=== PATIENT | female | born 2000 | race Caucasian/White ===

== ENCOUNTER 2020-10-05 07:29 | Emergency (ER) | payer OTHER ==
[~2020-10-05] VITALS: Ht 162.6 cm; Wt 54.4 kg
[2020-10-05] MEDS ORDERED: IRON18 M1 PO (07:44)
[2020-10-05 07:53] LABS: CALCIUM 9.5 mg/dL (8.5-10.1); POTASSIUM 3.8 mmol/L (3.5-5.1)
[2020-10-05 07:57] LABS: HEMATOCRIT 41.3 % (37.0-47.0); HEMOGLOBIN 14.3 gm/dL (12.0-15.0); MCH 30.2 pg (26.0-34.0); MCHC 34.7 g/dL (28.0-37.0); MCV 87.2 fL (80.0-100.0); MPV 6.8 fl. (7.2-11.1); RBC 4.74 mil/uL (4.20-5.00); RDW-CV 12.3 % (10.5-14.5); WBC 9.4 thou/uL (4.0-11.0)
[2020-10-05 07:58] LABS: ALBUMIN 4.4 g/dL (3.4-5.0); TOTAL BILIRUBIN 0.8 mg/dL (<0.1-1.0); TOTAL PROTEIN 7.5 g/dL (6.4-8.2)
[2020-10-05 08:05] LABS: URINE BLOOD 1+ (Negative); URINE CLARITY CLEAR; URINE COLOR YELLOW; URINE GLUCOSE-RANDOM NEGATIVE (Negative); URINE KETONES TRACE (Negative); URINE LEUKOCYTES NEGATIVE (Negative); URINE NITRITE NEGATIVE (Negative); URINE PROTEIN TRACE (Negative); URINE SPECIFIC GRAVITY 1.025 (1.005-1.030); URINE UROBILINOGEN 0.2 E.U./dl (0.2-1.0)
[2020-10-05 08:12] LABS: ICTOTEST (BILI CONFIRMATORY) Negative (Negative); URINE BILIRUBIN 1+ (Negative)
[2020-10-05 08:16] LABS: SQUAMOUS 4-10 Moderate /LPF (0-3)
[2020-10-05 08:17] LABS: BACTERIA 1-9 Few /HPF (None Seen); CRYSTALS None Seen /LPF (None Seen); HYALINE CASTS 0-3 Few /LPF (None Seen); MUCUS >6 Heavy strn/LPF (None Seen); URINE RBC 3-10 Few /HPF (0-2); URINE WBC 0-5 Rare /HPF (0-5)
[2020-10-05 08:44] VITALS: BP 100/57
--- NOTE | 2020-10-05 14:22 | EKG ---
[place] [address] ELECTROCARDIOGRAM REPORT Name: AHMET TALLEY Room: [facility]#: [id number] Admission: 10/05/20 Attend Phys: Discharge: 10/05/20 Date of : [birth year] Date of Service: 10/05/20 0741 Report #: [id number] THIS REPORT FOR: //name// [facility] ED Test Date: 2020-10-05 Test Time: 07:41:41 Pat Name: AHMET TALLEY Department: Room: Gender: Mechanical Design Engineer Facilities: : 2000 Requested By: Presley Ayala Order Number: [id number] MD: Saji Orozco Measurements Intervals [place] Rate: 56 P: -6 MO: 119 QRS: 52 QRSD: 92 T: 40 QT: 414 QTc: 400 Interpretive Statements Sinus rhythm Borderline short MO interval No previous ECG available for comparison Electronically Signed On 10-05-2020 14:22:43 CDT by Saji Orozco [email or web address] <ELECTRONICALLY SIGNED> By: Saji Orozco MD, [facility] 10/05/20 1422 0 0 Saji Orozco MD, [facility] /EPI
== END 2020-10-05 08:46 | disposition home or self-care (01) ==
LOC: M.ERS 07:29
PROVIDERS: Emergency Medicine
DX: I95.0 Idiopathic hypotension (principal); Z79.899 Other long term (current) drug therapy

== ENCOUNTER 2020-11-25 18:16 | Emergency (ER) | payer OTHER ==
[~2020-11-25] VITALS: Ht 162.6 cm; Wt 54.4 kg
[~2020-11-25 18:16] MED LIST: IRON18 M1 PO
[2020-11-25] MEDS ORDERED: BIRTH CONTROL (18:28)
[2020-11-25 20:04] VITALS: BP 118/54
== END 2020-11-25 20:04 | disposition home or self-care (01) ==
LOC: M.ERS 18:16
DX: M25.562 Pain in left knee (principal)